=== PATIENT | male | born 1980 | race Caucasian/White ===

== ENCOUNTER 2016-09-22 11:37 | Day surgery (SDC) | payer BC, SELFPAY ==
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
[~2016-09-22 11:37] MED LIST: ADVIL PO; ATEN50 PO; ATV.5 PO; BACDS PO; FLEXERIL5 MG PO; MELATONIN1 M1 PO; NEUR300 PO; PERCOCET1 TA4 PO; PR25 PO; T PO; WELLBUTRIN200 MG PO; ZOL50 PO
== END 2016-09-22 17:07 | disposition home or self-care (01) ==
LOC: SDC 11:37
PROVIDERS: Surgery Surgery of the Hand
PROC: 01N40ZZ Release Ulnar Nerve, Open Approach (ICD-10-PCS; 2016-09-22)
PROC: 01N40ZZ Release Ulnar Nerve, Open Approach (ICD-10-PCS; 2016-09-22)
PROC: 01N50ZZ Release Median Nerve, Open Approach (ICD-10-PCS; principal; 2016-09-22 12:45)
PROC: 0PN Upper Bones, Release (ICD-10-PCS; 2016-09-22 12:45)
PROC: 01N50ZZ Release Median Nerve, Open Approach (ICD-10-PCS; 2016-09-22 12:45)
DX: G56.02 Carpal tunnel syndrome, left upper limb (principal); G56.22 Lesion of ulnar nerve, left upper limb; G89.29 Other chronic pain; M19.022 Primary osteoarthritis, left elbow; M19.021 Primary osteoarthritis, right elbow; K21.9 Gastro-esophageal reflux disease without esophagitis; F41.9 Anxiety disorder, unspecified; Z79.899 Other long term (current) drug therapy
CPT/HCPCS: 76000; 88300; A9270-GY; J0690; J2250; J2270; J2405; J3010